=== PATIENT | male | born 1995 | race Caucasian/White ===

== ENCOUNTER 2022-12-14 09:27 | Outpatient (CLI) | payer OTHER | END 2022-12-14 09:28 | disposition home or self-care (01) | LOC: RAD 09:27 | PROVIDERS: ATTEND Urology | DX: N20.0 Calculus of kidney (principal); M89.9 Disorder of bone, unspecified | CPT/HCPCS: 74018 ==

== ENCOUNTER 2023-01-12 09:38 | Outpatient (CLI) | payer OTHER | END 2023-01-12 09:39 | disposition home or self-care (01) | LOC: RAD 09:38 | PROVIDERS: ATTEND Urology | DX: N20.0 Calculus of kidney (principal) | CPT/HCPCS: 74018 ==

== ENCOUNTER 2023-03-16 09:05 | Outpatient (CLI) | payer OTHER | END 2023-03-16 09:06 | disposition home or self-care (01) | LOC: BICCT 09:05 | PROVIDERS: ATTEND Urology | DX: N20.0 Calculus of kidney (principal) | CPT/HCPCS: 74176 ==